=== PATIENT | female | born 1985 | race American Indian/Alaskan Native ===

== ENCOUNTER 2019-07-24 10:15 | Outpatient (CLI) | payer MEDICAID ==
--- NOTE | 2019-07-24 11:33 | XRay Report ---
CHEST 2 VIEWS INDICATION: R07.1) CHEST PAIN ON BREATHING/R07.9) CHEST PAIN AT REST. COMPARISON: None. FINDINGS: Support devices: None. Heart: Normal. Pulmonary vasculature: Normal. Lungs/pleura: Normally expanded and clear lungs. No pleural effusion. No pneumothorax. Additional findings: Normal aorta. IMPRESSION: 1. Normal chest. Signer Name: Fito Vazquez MD Signed: 07/24/2019 11:29 AM Workstation Name: [id number]
== END 2019-07-24 10:16 | disposition home or self-care (01) ==
LOC: XRAY 10:15
DX: R07.1 Chest pain on breathing (principal)
CPT/HCPCS: 71046